=== PATIENT | male | born 1950 | race Caucasian/White ===

== ENCOUNTER → 2020-08-30 | Outpatient (CLI) | payer MEDICARE, OTHER | END | disposition home or self-care (01) | LOC: 64 CT 08:30 | PROVIDERS: ATTEND Surgery | DX: C18.9 Malignant neoplasm of colon, unspecified (principal); N28.89 Other specified disorders of kidney and ureter; N32.3 Diverticulum of bladder; N40.0 Benign prostatic hyperplasia without lower urinary tract symptoms; M47.814 Spondylosis without myelopathy or radiculopathy, thoracic region; M47.817 Spondylosis without myelopathy or radiculopathy, lumbosacral region | CPT/HCPCS: 74176 ==

== ENCOUNTER 2021-08-16 10:06 | Day surgery (SDC) | payer MEDICARE, MEDICAID, OTHER ==
[~2021-08-16] VITALS: Ht 177.8 cm; Wt 138.6 kg
[~2021-08-16 10:06] MED LIST: DILT360C38 PO; FLO0.4C PO; FLUO-1 PO; FURO20TA4 PO; HYDR-3972 PO; LATA2.5D14 EACHEYE; LEVO50TA8 PO; RIVA20TA PO; ROSU5TAB12 PO; TRIA1CAP6 PO
[2021-08-16 10:25] VITALS: BP 166/134
[2021-08-16] MEDS ORDERED: fentaNYL/PF 50MCG/1 ML 2ML syringe ONE (10:42)
[2021-08-16] MEDS ORDERED: MIDAZolam 1 MG/ML 5ML VIAL ONE (10:42)
[2021-08-16] MEDS ORDERED: METO-467 PO (10:55)
[2021-08-16] MEDS ORDERED: DILT300C34 PO (10:56)
[2021-08-16 11:41] VITALS: BP 156/98
[2021-08-16 11:51] VITALS: BP 163/98
[2021-08-16 12:01] VITALS: BP 164/98
[2021-08-16 12:11] VITALS: BP 161/102
== END 2021-08-16 12:45 | disposition home or self-care (01) ==
LOC: GI LAB 10:06
PROVIDERS: ATTEND Internal Medicine Gastroenterology
DX: Z08 Encounter for follow-up examination after completed treatment for malignant neoplasm (principal); D12.2 Benign neoplasm of ascending colon; D12.3 Benign neoplasm of transverse colon; K64.8 Other hemorrhoids; I10 Essential (primary) hypertension; I48.91 Unspecified atrial fibrillation; E66.9 Obesity, unspecified; Z68.41 Body mass index [BMI] 40.0-44.9, adult; Z86.010 Personal history of colon polyps; Z85.038 Personal history of other malignant neoplasm of large intestine; Z88.8 Allergy status to other drugs, medicaments and biological substances
CPT/HCPCS: 45380; 45385; 88305; 99153; C1773; G0500; J2250; J3010; J7040; Z7512; 44389; 44402; 45382; A4620